=== PATIENT | male | born 1990 | race African-American/Black ===

== ENCOUNTER 2017-02-23 08:00 | Outpatient (CLI) | payer MEDICAID | END 2017-02-23 08:01 | disposition home or self-care (01) | LOC: LAB.R 08:00 | PROVIDERS: ATTEND Physician Assistant | DX: L92.3 Foreign body granuloma of the skin and subcutaneous tissue (principal) | CPT/HCPCS: 87070; 87205 ==

== ENCOUNTER 2017-02-23 10:48 | Outpatient (CLI) | payer MEDICAID ==
--- NOTE | 2017-02-23 13:57 | XRAY Report ---
THREE-VIEW RIGHT FOOT: 02/23/2017 CLINICAL INDICATION: Right foot pain. FINDINGS: AP, lateral, oblique views of the right foot demonstrate no evidence of fracture or disloc ation. The joint spaces are unremarkable. No radiopaque foreign body is seen in the soft tissues. IMPRESSION: NORMAL RIGHT FOOT. JOB #: [id number] EXT JOB #:[id number]
== END 2017-02-23 10:49 | disposition home or self-care (01) ==
LOC: DI.N 10:48
PROVIDERS: ATTEND Physician Assistant
DX: L92.3 Foreign body granuloma of the skin and subcutaneous tissue (principal)
CPT/HCPCS: 87070; 87205

== ENCOUNTER 2017-03-13 03:09 | Emergency (ER) | payer MEDICAID ==
[2017-03-13 03:19] VITALS: BP 149/86
[2017-03-13] MEDS ORDERED: HYDROcod/ACET 5/325 Prepack 6 PO STA (03:40)
--- NOTE | 2017-03-13 03:43 | ED Physician Documentation ---
PD HPI HEENT - Stated complaint Stated Complaint: TOOTHACHE - Chief complaint Chief Complaint: Heent - History obtained from History obtained from: Patient - History of Present Illness Timing - onset: How many days ago (3) Timing - details: Still present Location: Tooth Associated symptoms: Headache (mild). No: Fever, Facial swelling Recently seen: Clinic (yesterday) - Treatment prior to arrival Treatment prior to arrival: Penicillin and ibuprofen. - Additional information Additional information: The patient is a 26-year-old male who presents with toothache in the right upper premolar. His symptoms started 3 days ago, but have become worse since last night. He reports mild associated headache, but denies fever, earache, or sore throat. He was seen in outpatient clinic yesterday and was prescribed penicillin and ibuprofen. His last dose of ibuprofen was about 7 hours ago. He reports history of similar symptoms in the past, and admits to past history of methamphetamine use. He denies recent use of amphetamines. Review of Systems Constitutional: denies: Fever Eyes: denies: Irritation Ears: denies: Ear pain Nose: denies: Congestion Throat: reports: Dental pain / toothache. denies: Sore throat Cardiac: denies: Chest pain / pressure Respiratory: denies: Dyspnea, Cough GI: denies: Nausea, Vomiting Skin: denies: Rash Musculoskeletal: denies: Neck pain Neurologic: reports: Headache (mild) PD PAST MEDICAL HISTORY - Past Medical History Past Medical History: No Cardiovascular: None Respiratory: None Endocrine/Autoimmune: None - Past Surgical History Past Surgical History: No - Present Medications Home Medications: Ambulatory Orders Medication Instructions Recorded Confirmed HYDROcod/ACETAM 5/325 [Vicodin 1 - 2 ea PO Q6H PRN #20 tablet 03/13/17 5/325] Ibuprofen [Motrin] 800 mg PO Q8H PRN 03/13/17 03/13/17 Penicillin Vk 250 mg PO BID 03/13/17 03/13/17 - Allergies Allergies/Adverse Reactions: Allergies Allergy/AdvReac Type Severity Reaction Status Date / Time No Known Drug Allergies Allergy Verified 03/13/17 03:24 - Social History Does the pt smoke?: Yes Smoking Status: Current every day smoker Does the pt drink ETOH?: No Does the pt have substance abuse?: No - Immunizations Immunizations are current?: Yes - POLST Patient has POLST: No PD ED PE NORMAL - Vitals Vital signs reviewed: Yes (Borderline hypertension initially.) - General General: Alert and oriented X 3, Well developed/nourished - HEENT HEENT: Atraumatic, EOMI, Ears normal, Pharynx benign, Other (Widespread dental caries, with many teeth rotted to the gumline. There is swelling of the alveolar gum over the right premolars, with a draining abscess noted. There is no significant facial swelling or peritonsillar abscess detected.) - Neck Neck: Supple, no meningeal sign, No adenopathy, No JVD - Cardiac Cardiac: RRR, No murmur - Respiratory Respiratory: No respiratory distress, Clear bilaterally - Derm Derm: No rash - Neuro Neuro: Alert and oriented X 3, Normal speech Results - Vitals Vitals: Oxygen O2 Source Room air PD MEDICAL DECISION MAKING - ED course Complexity details: considered differential, d/w patient ED course: The patient's presentation is significant for dental abscess. There is no clinical evidence to suggest peritonsillar abscess. He is already on penicillin which was started yesterday. A prepack of Vicodin was dispensed, and he is discharged with a prescription for a few more Vicodin. I discussed with him the importance of continuing the antibiotic therapy, following up with a dentist, as well as potentially worrisome signs or symptoms that should prompt reevaluation in the emergency department. Departure - Departure Disposition: 01 Home, Self Care Clinical Impression: Dental abscess Condition: Stable Instructions: ED Abscess Dental Follow-Up: Norm Levy PA-C [Primary Care Provider] - Prescriptions: HYDROcod/ACETAM 5/325 [Vicodin 5/325] 1 - 2 ea PO Q6H PRN #20 tablet PRN Reason: Pain Comments: Continue Augmentin as previously prescribed. You can use Vicodin as prescribed if needed for pain. Follow-up with a dentist as soon as possible. Call for earliest available appointment. Return to the emergency department if you develop increasing pain, increasing facial swelling, or otherwise worsening symptoms. Discharge Date/Time: 03/13/17 03:47
[2017-03-13] MEDS ORDERED: HYDROcod/ACET 5/325 Prepack 6 PO ONE (03:46)
== END 2017-03-13 03:47 | disposition home or self-care (01) ==
LOC: ED 03:09
DX: K04.7 Periapical abscess without sinus (principal); F17.200 Nicotine dependence, unspecified, uncomplicated
CPT/HCPCS: 99283

== ENCOUNTER 2017-09-10 08:00 | Outpatient (CLI) | payer MEDICAID | END 2017-09-10 08:01 | disposition home or self-care (01) | LOC: LAB.N 08:00 | PROVIDERS: ATTEND Nurse Practitioner Gerontology | DX: Z11.3 Encounter for screening for infections with a predominantly sexual mode of transmission (principal) | CPT/HCPCS: 36415; 80050; 80061; 81599; 83721; 86803; 87389; 87491; 87591 ==

== ENCOUNTER 2017-09-11 13:11 | Outpatient (CLI) | payer MEDICAID ==
[2017-09-11 19:29] LABS: BASOPHILS % (AUTO) 0.7 %; EOSINOPHILS # (AUTO) 0.1 10^3/uL (0.0-0.7); HGB - HEMOGLOBIN 14.9 g/dL (14.0-18.0); LYMPHOCYTES # (AUTO) 2.6 10^3/uL (1.5-3.5); LYMPHOCYTES % (AUTO) 59.5 %; MEAN CORPUSCULAR HEMOGLOBIN 31.5 pg (27.0-31.0); MEAN CORPUSCULAR HGB CONC 33.4 g/dL (32.0-36.0); MEAN CORPUSCULAR VOLUME 94.5 fL (80.0-94.0); MEAN PLATELET VOLUME 8.4 fL (7.4-11.4); MONOCYTES # (AUTO) 0.2 10^3/uL (0.0-1.0); MONOCYTES % (AUTO) 5.1 %; NEUTROPHILS # (AUTO) 1.4 10^3/uL (1.5-6.6); NEUTROPHILS % (AUTO) 31.7 %; PLT - PLATELET COUNT 144 10^3/uL (130-450); RED BLOOD COUNT 4.74 10^6/uL (4.70-6.10); RED CELL DISTRIBUTION WIDTH 13.4 % (12.0-15.0); WHITE BLOOD COUNT 4.3 x10^3/uL (4.8-10.8)
[2017-09-11 19:51] LABS: ALBUMIN 4.5 g/dL (3.2-5.5); ALBUMIN/GLOBULIN RATIO 1.6 (1.0-2.2); ALKALINE PHOSPHATASE 75 IU/L (42-121); ALT ALANINE AMINOTRANSFERASE 10 IU/L (10-60); AST ASPARTATE AMINOTRANSFERASE 20 IU/L (10-42); BILIRUBIN,TOTAL 0.9 mg/dL (0.2-1.0); BUN - BLOOD UREA NITROGEN 7 mg/dL (6-20); CALCIUM 9.2 mg/dL (8.5-10.3); CARBON DIOXIDE - CO2 26 mmol/L (21-32); CHLORIDE 109 mmol/L (101-111); CHOL/HDL RATIO 4.1 (<5.0); CHOLESTEROL 142 mg/dL; CREATININE 0.9 mg/dL (0.6-1.2); GFR - MDRD 123 (>89); GLUCOSE 78 mg/dL (70-100); HDL CHOLESTEROL 35 mg/dL; LDL CHOLESTEROL,CALCULATED 97 mg/dL; LDL/HDL RATIO 2.8 (<3.6); SODIUM 138 mmol/L (135-145); TOTAL PROTEIN 7.4 g/dL (6.7-8.2); VLDL CHOLESTEROL 10 mg/dL
[2017-09-12 12:52] LABS: HIV AG/AB 4TH GEN NON-REACTIVE (NON-REACTIVE)
[2017-09-12 14:09] LABS: HEPATITIS C ANTIBODY NON-REACTIVE (NON-REACTIVE)
== END 2017-09-11 13:12 | disposition home or self-care (01) ==
LOC: LAB.N 13:11
PROVIDERS: ATTEND Nurse Practitioner Gerontology
DX: Z13.9 Encounter for screening, unspecified (principal); Z11.3 Encounter for screening for infections with a predominantly sexual mode of transmission
CPT/HCPCS: 36415; 80050; 80061; 81599; 83721; 86592; 86803; 87389

== ENCOUNTER 2019-12-09 21:22 | Emergency (ER) | payer MEDICAID ==
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
[2019-12-09 22:55] VITALS: BP 116/68
== END 2019-12-09 23:04 | disposition home or self-care (01) ==
LOC: ED 21:22
DX: S20.219A Contusion of unspecified front wall of thorax, initial encounter (principal); W22.09XA Striking against other stationary object, initial encounter; Y93.16 Activity, rowing, canoeing, kayaking, rafting and tubing; Y92.828 Other wilderness area as the place of occurrence of the external cause; F17.200 Nicotine dependence, unspecified, uncomplicated
CPT/HCPCS: 71250; 99284

== ENCOUNTER 2020-03-10 09:14 | Emergency (ER) | payer MEDICAID ==
[2020-03-10 09:21] VITALS: BP 145/80
[2020-03-10] MEDS ORDERED: CYCLOBENZAPRINE 10 MG TABLET PO STA (09:26)
[2020-03-10] MEDS ORDERED: HYDROcod/ACETAM 5/325 MG TABLET PO STA (09:26)
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
== END 2020-03-10 09:37 | disposition home or self-care (01) ==
LOC: ED 09:14
DX: M54.6 Pain in thoracic spine (principal); F17.200 Nicotine dependence, unspecified, uncomplicated
CPT/HCPCS: 99282; 99284; A9270

== ENCOUNTER 2020-08-01 08:23 | Outpatient (CLI) | payer MEDICAID ==
--- NOTE | 2020-08-01 17:12 | XRAY Report ---
PROCEDURE: Lumbar Spine Complete INDICATIONS: STRAIN OF MUSCLE, FASCIA, AND TENDON OF LOWER BACK TECHNIQUE: 4 views of the lumbar spine were acquired. COMPARISON: None. FINDINGS: Bones: 5 [id number] vertebrae are present. There is normal bony alignment. No vertebral body compression fractures. No suspicious bony lesions. No pars and articularis defects. Soft tissues: Overlying bowel gas pattern is normal. No suspicious soft tissue calcifications. IMPRESSION: No fracture. No osseous lesion. If there is continued clinical concern for pathology, then MRI should be considered for further evaluation. Reviewed by: Billie Woods MD, PhD on 08/01/2020 4:11 PM [facility] Approved by: Billie Woods MD, PhD on 08/01/2020 4:11 PM [facility] Station ID: [id number]
== END 2020-08-01 23:59 | disposition home or self-care (01) ==
LOC: DI.N 08:23
PROVIDERS: ATTEND Nurse Practitioner
DX: S39.012A Strain of muscle, fascia and tendon of lower back, initial encounter (principal)

== ENCOUNTER 2021-01-27 07:18 | Emergency (ER) | payer MEDICAID ==
[2021-01-27 07:34] VITALS: BP 150/93
--- NOTE | 2021-01-27 07:41 | ED Physician Documentation ---
PD HPI MALE - Stated complaint Stated Complaint: MALE - Chief complaint Chief Complaint: General - History obtained from History obtained from: Patient - History of Present Illness Timing - onset: How many days ago (2-3) Timing - duration: Days (2-3) Timing - details: Gradual onset, Still present Associated symptoms: Other (pubic itching and noted small white thing crawling.) Similar symptoms before: Has not had sx before Recently seen: Not recently seen Review of Systems Constitutional: denies: Fever, Chills Nose: denies: Rhinorrhea / runny nose, Congestion Throat: denies: Sore throat Respiratory: denies: Cough : denies: Dysuria, Frequency, Discharge Skin: reports: Other (itching without rash noted in pubic area. He states feeling slight scalp itching the past day as well. No bodywide rash nor sores.) Musculoskeletal: denies: Joint pain, Extremity swelling PD PAST MEDICAL HISTORY - Past Medical History Cardiovascular: None Respiratory: None Neuro: None Endocrine/Autoimmune: None GI: None : None HEENT: None Psych: None Musculoskeletal: None Derm: None - Past Surgical History Past Surgical History: No - Present Medications Home Medications: Ambulatory Orders Medication Instructions Recorded Confirmed Permethrin 60 gm TP ONCE #1 tu 01/27/21 - Allergies Allergies/Adverse Reactions: Allergies Allergy/AdvReac Type Severity Reaction Status Date / Time No Known Drug Allergies Allergy Verified 01/27/21 07:34 - Social History Does the pt smoke?: Yes Smoking Status: Current every day smoker Does the pt drink ETOH?: No Does the pt have substance abuse?: No - Immunizations Immunizations are current?: Yes - POLST Patient has POLST: No PD ED PE NORMAL - Vitals Vital signs reviewed: Yes - General General: Alert and oriented X 3, No acute distress, Well developed/nourished - HEENT HEENT: Other (scalp hair is short so easy to examine. No noted skin redness, nits nor lice. ) - Male Male : Other (No discharge. No noted skin sores. Mild redness just near base of penis shaft dorsally. No nits nor lice seen. Can treat empirically. ) - Derm Derm: Normal color, Warm and dry Results - Vitals Vitals: Vital Signs - 24 hr 01/27/21 07:33 Temperature 36.1 C L Heart Rate 89 Respiratory 16 Rate Blood Pressure 150/93 H O2 Saturation 100 Oxygen O2 Source Room air PD MEDICAL DECISION MAKING - ED course Complexity details: considered differential (no nits seen. So if has lice, then mild infestation. Can treat empirically with permithrin. ), d/w patient Departure - Departure Disposition: 01 Home, Self Care Clinical Impression: Pubic lice Condition: Stable Record reviewed to determine appropriate education?: Yes Instructions: ED Lice Pubic Prescriptions: Permethrin 60 gm TP ONCE #1 tu Comments: Use the permethrin as directed by the package instructions. Trade names for this are RID, Nix, Elimite. Typically this can be treated with a single application. The itchiness may persist for a few days after and taper down. Recheck or re-apply the Permithrin if persistent symptoms after a week or so.
== END 2021-01-27 08:29 | disposition home or self-care (01) ==
LOC: ED 07:18
DX: B85.3 Phthiriasis (principal); F17.200 Nicotine dependence, unspecified, uncomplicated
CPT/HCPCS: 99282; 99283

== ENCOUNTER 2021-02-01 07:13 | Emergency (ER) | payer MEDICAID ==
--- NOTE | 2021-02-01 08:01 | ED Physician Documentation ---
History of Present Illness - Stated complaint Stated Complaint: RASH - Chief complaint Chief Complaint: Wound - History obtained from History obtained from: Patient - History of Present Illness Timing: Today Pain level max: 5 Pain level now: 3 - Additonal information Additional information: Patient is a 30-year-old male who states that he was shaving last night and has noticed irritation to the underside of his skin. He states that this is itchy and painful. Nothing makes it better or worse. He states he was recently treated for potential scabies versus lice. He states he took red but this did not help. He states that there are worms coming out of his skin and on his eyelashes. He complains that the rash is itchy Review of Systems Constitutional: denies: Fever, Chills GI: denies: Vomiting, Diarrhea Musculoskeletal: denies: Neck pain, Back pain Neurologic: denies: Headache PD PAST MEDICAL HISTORY - Past Medical History Past Medical History: No Cardiovascular: None Respiratory: None Neuro: None Endocrine/Autoimmune: None GI: None : None HEENT: None Psych: None Musculoskeletal: None Derm: None - Past Surgical History Past Surgical History: No - Present Medications Home Medications: Ambulatory Orders Medication Instructions Recorded Confirmed Ivermectin [Stromectol] 12 mg PO ONCE #8 tablet 02/01/21 predniSONE [Deltasone] 40 mg PO DAILY #10 tablet 02/01/21 - Allergies Allergies/Adverse Reactions: Allergies Allergy/AdvReac Type Severity Reaction Status Date / Time No Known Drug Allergies Allergy Verified 02/01/21 07:49 - Social History Does the pt smoke?: Yes Smoking Status: Current every day smoker Does the pt drink ETOH?: No Does the pt have substance abuse?: Yes Substance Use and Type: Cocaine/Crack - Immunizations Immunizations are current?: Yes - POLST Patient has POLST: No PD ED PE NORMAL - Vitals Vital signs reviewed: Yes - General General: Alert and oriented X 3, No acute distress - HEENT HEENT: Moist mucous membranes - Neck Neck: Supple, no meningeal sign - Cardiac Cardiac: RRR - Respiratory Respiratory: No respiratory distress, Clear bilaterally - Derm Derm: Warm and dry, Other (I do not visualize any parasites on the patient. He does have skin irritation to the face. Mostly underneath the chin. No drainage. No evidence of infection.) - Neuro Neuro: Alert and oriented X 3 - Psych Psych: Normal mood, Normal affect Results - Vitals Vitals: Vital Signs - 24 hr 02/01/21 02/01/21 07:35 08:36 Temperature 37.2 C Heart Rate 117 H 87 Respiratory 16 16 Rate Blood Pressure 149/106 H 130/79 O2 Saturation 98 100 Oxygen O2 Source Room air PD MEDICAL DECISION MAKING - ED course Complexity details: reviewed results, re-evaluated patient, considered differential, d/w patient ED course: Patient is a 30-year-old male who presents to the emergency department with what appears to be a rash to the underside of the chin. He is also concerned about parasites. He states that there are worms underneath his fingernails, on his eyelashes and in his skin. He states the permethrin did not help. We will trial him on ivermectin to see if this helps his symptoms. Patient is well- appearing, nontoxic. Afebrile. We will have him follow-up with dermatology for further care. Patient counseled regarding signs and symptoms for which I believe and urgent re-evaluation would be necessary. Patient with good understanding of and agreement to plan and is comfortable going home at this time This document was made in part using voice recognition software. While efforts are made to proofread this document, sound alike and grammatical errors may occur. Departure - Departure Disposition: 01 Home, Self Care Clinical Impression: Dermatitis, Dermatosis due to mites Condition: Good Instructions: ED Dermatitis Non Specific Rash Follow-Up: [facility] [Provider Group] - Within 3 Days ([address], [place] [address]) Prescriptions: predniSONE [Deltasone] 40 mg PO DAILY #10 tablet Ivermectin [Stromectol] 12 mg PO ONCE #8 tablet Comments: [address], [place] [address] Please follow-up with dermatology for further care. We can trial you on steroids and a different night cream. Unclear etiology of your symptoms. They may need to perform biopsies to determine the cause. We will trial you on ivermectin to see if this resolves your symptoms. This is an antiparasitic drug. Discharge Date/Time: 02/01/21 08:37
[2021-02-01 08:37] VITALS: BP 130/79
== END 2021-02-01 08:37 | disposition home or self-care (01) ==
LOC: ED 07:13
DX: L30.9 Dermatitis, unspecified (principal); B88.9 Infestation, unspecified; L98.8 Other specified disorders of the skin and subcutaneous tissue; F17.200 Nicotine dependence, unspecified, uncomplicated
CPT/HCPCS: 99282; 99284

== ENCOUNTER 2021-02-23 12:02 | Emergency (ER) | payer MEDICAID ==
[2021-02-23 12:09] VITALS: BP 135/78
[2021-02-23] MEDS ORDERED: IBUPROFEN 600 MG TABLET PO STA (12:42)
[2021-02-23] MEDS ORDERED: PSEUDOEPHEDRINE 30 MG TABLET PO STA (12:42)
[2021-02-23] MEDS ORDERED: ONDANSETRON ODT 4 MG TABLET TL STA (12:43)
--- NOTE | 2021-02-23 12:45 | ED Physician Documentation ---
PD HPI DYSPNEA - Stated complaint Stated Complaint: SOA/TROUBLE SWALLOWING - Chief complaint Chief Complaint: Resp - History obtained from History obtained from: Patient - Additional information Additional information: 30-year-old gentleman who is generally healthy but does use tobacco has been sick since yesterday. Started with dry cough now minimally productive with sore throat that is better today. Main thing is that the coughing is causing nausea. No fevers. He has been immunized against Covid and declines a Covid test today. Review of Systems Constitutional: reports: Fatigue. denies: Myalgias Nose: reports: Rhinorrhea / runny nose, Congestion Throat: reports: Sore throat (gone) Respiratory: reports: Cough. denies: Dyspnea PD PAST MEDICAL HISTORY - Past Medical History Cardiovascular: None Respiratory: None Neuro: None Endocrine/Autoimmune: None GI: None : None HEENT: None Psych: None Musculoskeletal: None Derm: None - Past Surgical History Past Surgical History: No - Present Medications Home Medications: Ambulatory Orders Medication Instructions Recorded Confirmed Ivermectin [Stromectol] 12 mg PO ONCE #8 tablet 02/01/21 predniSONE [Deltasone] 40 mg PO DAILY #10 tablet 02/01/21 Guaifenesin/Pseudoephedrne HCl 1 each PO BID PRN #20 ea 02/23/21 [Mucinex D ER 600-60 mg Tablet] Ibuprofen [Motrin] 800 mg PO Q8H PRN #30 tablet 02/23/21 Ondansetron Odt [Zofran] 4 mg TL Q6H PRN #10 tablet 02/23/21 guaiFENesin/CODEINE [Robitussin AC] 5 - 10 ml PO Q6H PRN #120 ml 02/23/21 - Allergies Allergies/Adverse Reactions: Allergies Allergy/AdvReac Type Severity Reaction Status Date / Time No Known Drug Allergies Allergy Verified 02/23/21 12:05 - Social History Does the pt smoke?: Yes Smoking Status: Current every day smoker Does the pt drink ETOH?: No Does the pt have substance abuse?: Yes - Immunizations Immunizations are current?: Yes - POLST Patient has POLST: No PD ED PE NORMAL - Vitals Vital signs reviewed: Yes - General General: Alert and oriented X 3, No acute distress - HEENT HEENT: Ears normal, Pharynx benign - Neck Neck: Supple, no meningeal sign, No bony TTP - Cardiac Cardiac: RRR, No murmur - Respiratory Respiratory: No respiratory distress, Clear bilaterally - Abdomen Abdomen: Non tender - Neuro Neuro: Alert and oriented X 3, Normal speech Results - Vitals Vitals: Vital Signs - 24 hr 02/23/21 12:05 Temperature 36.6 C Heart Rate 77 Respiratory 16 Rate Blood Pressure 135/78 H O2 Saturation 98 Oxygen O2 Source Room air Departure - Departure Disposition: Home, Self Care Clinical Impression: Upper respiratory tract infection Qualifiers: URI type: unspecified viral URI Qualified Code(s): J06.9 - Acute upper respiratory infection, unspecified Condition: Good Record reviewed to determine appropriate education?: Yes Instructions: ED Viral Syndrome Prescriptions: Ibuprofen [Motrin] 800 mg PO Q8H PRN #30 tablet PRN Reason: PAIN &/OR FEVER Guaifenesin/Pseudoephedrne HCl [Mucinex D ER 600-60 mg Tablet] 1 each PO BID PRN #20 ea PRN Reason: congestion guaiFENesin/CODEINE [Robitussin AC] 5 - 10 ml PO Q6H PRN #120 ml PRN Reason: Cough Ondansetron Odt [Zofran] 4 mg TL Q6H PRN #10 tablet PRN Reason: Nausea / Vomiting Comments: Return if worsening or if not better over the next few days. Follow-up with your doctor next week for recheck. Do not drink or drive while taking prescription cough syrup I am prescribing a short course of narcotic cough medication for you. These are potentially dangerous and addictive medications that should be used carefully. These medications may constipate you. Take an mypc-naa-novvrtw stool softener (docusate) twice daily with plenty of water while taking these medications. If you go 24 hours without a bowel movement, take osoi-wqk-letazpw miralax, per package instructions. Do not drink or drive while taking these medications. If you received narcotic or sedating medications while in the emergency department, do not drive for 24 hours. Store this medication in a safe, secure place and out of reach of children. It is a violation of federal law to give or sell this medication to another person or to use in a manner other than prescribed. The ED will not refill narcotic prescriptions, including prescriptions lost or stolen. To dispose of unwanted medications: 1. [facility] at [address] in [place] has a medication drop box. They accept prescription medications (in pill form) Thursday through Thursday 9:00 a.m. to 5:00 p.m. 2. The [facility] accepts prescription medications (in pill form only) for disposal year round. Call for more information. 3. Contact the [facility] for the next [facility] sponsored prescription drug collection event. , [id number], or [id number]; Note that many narcotic pain relievers also contain Tylenol/acetaminophen. Please ensure that your total dose of acetaminophen from all sources does not exceed 3 g (3000 mg) per day. Discharge Date/Time: 02/23/21 12:53
== END 2021-02-23 12:53 | disposition home or self-care (01) ==
LOC: ED 12:02
DX: J06.9 Acute upper respiratory infection, unspecified (principal); Z72.0 Tobacco use
CPT/HCPCS: 99284; A9270; Q0162

== ENCOUNTER 2021-08-10 12:54 | Emergency (ER) | payer MEDICAID ==
[2021-08-10] MEDS ORDERED: HYDROcod/ACETAM 5/325 MG TABLET PO STA (13:15)
[2021-08-10] MEDS ORDERED: KETOROLAC 60 MG/2 ML VIAL IM STA (13:15)
--- NOTE | 2021-08-10 13:17 | ED Physician Documentation ---
PD HPI UPPER EXT INJURY - Stated complaint Stated Complaint: R SHOULDER/ARM PX - Chief complaint Chief Complaint: Trauma Ext - History obtained from History obtained from: Patient - Additonal information Additional information: He was changing a tire about 10 days ago and the wrench broke and forcefully turned his right shoulder and he has severe persistent right shoulder pain. He has been seen in the walk-in clinic and had an ultrasound done which was reportedly negative. He has been trying NSAIDs and was prescribed muscle relaxers which have not been very helpful. No other injuries. He has a history of drug abuse but remote and in remission. Review of Systems Constitutional: reports: Reviewed and negative Cardiac: reports: Reviewed and negative Respiratory: reports: Reviewed and negative PD PAST MEDICAL HISTORY - Past Medical History Cardiovascular: None Respiratory: None Neuro: None Endocrine/Autoimmune: None GI: None : None HEENT: None Psych: None Musculoskeletal: None Derm: None - Past Surgical History Past Surgical History: No - Present Medications Home Medications: Ambulatory Orders Medication Instructions Recorded Confirmed Ivermectin [Stromectol] 12 mg PO ONCE #8 tablet 02/01/21 predniSONE [Deltasone] 40 mg PO DAILY #10 tablet 02/01/21 Guaifenesin/Pseudoephedrne HCl 1 each PO BID PRN #20 ea 02/23/21 [Mucinex D ER 600-60 mg Tablet] Ibuprofen [Motrin] 800 mg PO Q8H PRN #30 tablet 02/23/21 Ondansetron Odt [Zofran] 4 mg TL Q6H PRN #10 tablet 02/23/21 guaiFENesin/CODEINE [Robitussin AC] 5 - 10 ml PO Q6H PRN #120 ml 02/23/21 HYDROcod/ACETAM 5/325 [Gate 5/325] 1 - 2 tab PO Q6H PRN #15 tablet 08/10/21 Lidocaine Patch 5% [Lidoderm Patch] 1 patch TOP DAILY PRN #10 patch 08/10/21 - Allergies Allergies/Adverse Reactions: Allergies Allergy/AdvReac Type Severity Reaction Status Date / Time No Known Drug Allergies Allergy Verified 08/10/21 13:04 - Social History Does the pt smoke?: Yes Smoking Status: Current every day smoker Does the pt drink ETOH?: No Does the pt have substance abuse?: Yes - Immunizations Immunizations are current?: Yes - POLST Patient has POLST: No PD ED PE NORMAL - Vitals Vital signs reviewed: Yes - General General: Alert and oriented X 3, No acute distress - Neck Neck: Supple, no meningeal sign, No bony TTP - Extremities Extremities: Other (Tender over the upper latissimus dorsi posteriorly. Internal and external rotation of the right shoulder is painless but abduction is quite painful.) - Neuro Neuro: Alert and oriented X 3, Normal speech Results - Vitals Vitals: Vital Signs - 24 hr 08/10/21 12:58 Temperature 36.6 C Heart Rate 91 Respiratory 16 Rate Blood Pressure 133/91 H O2 Saturation 100 Oxygen O2 Source Room air Departure - Departure Disposition: Home, Self Care Clinical Impression: Strain of latissimus dorsi muscle Qualifiers: Encounter type: initial encounter Qualified Code(s): S29.012A - Strain of muscle and tendon of back wall of thorax, initial encounter Condition: Good Record reviewed to determine appropriate education?: Yes Instructions: ED Shoulder Pain [facility] Prescriptions: Lidocaine Patch 5% [Lidoderm Patch] 1 patch TOP DAILY PRN #10 patch PRN Reason: pain HYDROcod/ACETAM 5/325 [Gate 5/325] 1 - 2 tab PO Q6H PRN #15 tablet PRN Reason: Pain Comments: I sent prescription electronically to [facility] in [place]. Follow-up with your family doctor, as discussed I think having them refer you for physical therapy would be very helpful for you. I am prescribing a short course of narcotic pain medication for you. These are potentially dangerous and addictive medications that should be used carefully. These medications may constipate you. Take an ttdd-mtg-hgonjad stool softener (docusate) twice daily with plenty of water while taking these medications. If you go 24 hours without a bowel movement, take bouf-zad-iuckzpg miralax, per package instructions. Do not drink or drive while taking these medications. If you received narcotic or sedating medications while in the emergency department, do not drive for 24 hours. Store this medication in a safe, secure place and out of reach of children. It is a violation of federal law to give or sell this medication to another pers on or to use in a manner other than prescribed. The ED will not refill narcotic prescriptions, including prescriptions lost or stolen. To dispose of unwanted medications: 1. [facility] at [address] in [place] has a medication drop box. They accept prescription medications (in pill form) Thursday through Thursday 9:00 a.m. to 5:00 p.m. 2. The [facility] accepts prescription medications (in pill form only) for disposal year round. Call for more information. 3. Contact the [facility] for the next [facility] sponsored prescription drug collection event. , [id number], or [phone]; Note that many narcotic pain relievers also contain Tylenol/acetaminophen. Please ensure that your total dose of acetaminophen from all sources does not exceed 3 g (3000 mg) per day.
[2021-08-10 13:37] VITALS: BP 114/74
== END 2021-08-10 13:37 | disposition home or self-care (01) ==
LOC: ED 12:54
DX: S29.012A Strain of muscle and tendon of back wall of thorax, initial encounter (principal); X50.1XXA Overexertion from prolonged static or awkward postures, initial encounter; Y93.89 Activity, other specified; F17.200 Nicotine dependence, unspecified, uncomplicated
CPT/HCPCS: 96372; 99283; A9270

== ENCOUNTER 2023-04-19 09:17 | Emergency (ER) | payer MEDICAID ==
[2023-04-19 09:37] VITALS: BP 144/102; O2SAT 99
[2023-04-19] MEDS ORDERED: ONDANSETRON 4 MG/2 ML VIAL IVP STA (11:42)
[2023-04-19] MEDS ORDERED: IBUPROFEN 600 MG TABLET PO STA (11:42)
--- NOTE | 2023-04-19 11:47 | ED Physician Documentation ---
History of Present Illness - Stated complaint Stated Complaint: VOMITING/THROAT PX - Chief complaint Chief Complaint: Heent - Additonal information Additional information: 32-year-old male who denies any pertinent past medical history presents emergency department for evaluation of nausea vomiting and diarrhea. He is also having a sore throat. He had began having cough cold and congestion 2 days ago. This morning when he was at work he began vomiting and was excused home. He denies similar illness and others at home though he does work at [employer]. Reports he is tested negative for COVID. He is vaccinated. His biggest concern is the vomiting and the sore throat. Review of Systems Constitutional: reports: Myalgias, Fatigue. denies: Fever Nose: denies: Rhinorrhea / runny nose, Congestion Throat: reports: Sore throat Cardiac: denies: Chest pain / pressure, Palpitations Respiratory: reports: Cough. denies: Dyspnea GI: reports: Nausea, Vomiting. denies: Abdominal Pain : reports: Reviewed and negative Skin: reports: Reviewed and negative Musculoskeletal: reports: Reviewed and negative PD PAST MEDICAL HISTORY - Past Medical History Cardiovascular: None Respiratory: None Neuro: None Endocrine/Autoimmune: None GI: None : None HEENT: None Psych: None Musculoskeletal: None Derm: None - Past Surgical History Past Surgical History: No - Present Medications Home Medications: Ambulatory Orders Medication Instructions Recorded Confirmed Gabapentin 300 04/19/23 Ondansetron Odt [Zofran] 4 mg TL Q6H PRN #10 tablet 04/19/23 methocarbamoL [Methocarbamol] 04/19/23 - Allergies Allergies/Adverse Reactions: Allergies Allergy/AdvReac Type Severity Reaction Status Date / Time No Known Drug Allergies Allergy Verified 04/19/23 09:30 - Social History Does the pt smoke?: Yes Smoking Status: Current every day smoker Does the pt drink ETOH?: No Does the pt have substance abuse?: Yes - Immunizations Immunizations are current?: Yes - POLST Patient has POLST: No PD ED PE NORMAL - General General: Alert and oriented X 3, No acute distress, Well developed/nourished - HEENT HEENT: Atraumatic, Moist mucous membranes. No: Pharynx benign (Erythematous posterior oropharynx without tonsillar exudate. Uvula is midline. No soft palate asymmetry or swelling. Normal phonation, painful swallow. 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 He is having body aches and fatigue. This morning began having vomiting and diarrhea while at work. He is also been having a sore throat that is worse after coughing and clearing his nose. On exam cardiopulmonary auscultation was unremarkable. No hypoxia. Vital signs here without fever or hypotension. I do note mild tachycardia with a resting heart rate of 103. Low suspicion for pneumonia. No hematic emesis. Low suspicion for esophageal rupture. His ENT exam reveals an erythematous posterior oropharynx without exudate. Given the associated vomiting and diarrhea I suspected that he has a viral illness. No abdominal tenderness was elicited and thus will defer lab work or advanced imaging. We are going to send a respiratory PCR which patient will follow up online. I did give him a single dose of Zofran as well as ibuprofen for body aches and fatigue and lidocaine for the sore throat. We discussed routine conservative care measures for the treatment of viral URI symptoms. The usual emergent return precautions for worsening symptoms was discussed. Departure - Departure Disposition: 01 Home, Self Care Clinical Impression: Vomiting and diarrhea, Sore throat URI (upper respiratory infection) Qualifiers: URI type: unspecified viral URI Qualified Code(s): J06.9 - Acute upper respiratory infection, unspecified Condition: Stable Record reviewed to determine appropriate education?: Yes Prescriptions: Ondansetron Odt [Zofran] 4 mg TL Q6H PRN #10 tablet PRN Reason: Nausea / Vomiting Comments: Serafin you are seen today in the emergency department because for several days you have had cough congestion and sore throat. You have also began to have vomiting this morning and some diarrhea. All of your symptoms in totality indicate that you most likely have a viral upper respiratory infection. The nasal congestion and postnasal drip can cause the sore throat. In general to treat this I would recommend you gargle with warm salt water 2-3 times a day and take 600 mg of Motrin with food or 500 mg of Tylenol 2-3 times a day. A respiratory viral panel is pending. You can follow these results up online through the [email or web address] portal. We will only notify you if you are COVID-19 positive. In general with viral illnesses I recommend that you get plenty of rest and drink lots of fluids. A medication called Zofran has been sent to the [facility] in [place]. This will help with nausea and vomiting. Return to the emergency department if you find you are not having improving symptoms after several days, have any difficulty breathing or uncontrolled vomiting.
[2023-04-19 13:11] LABS: B. PARAPERTUSSIS- RESP PCR PAN NOT DETECTED; B. PERTUSSIS- RESP PCR PANEL NOT DETECTED; C. PNEUMONIAE- RESP PCR PANEL NOT DETECTED; CORONAVIRUS 229E-RESP PCR NOT DETECTED; CORONAVIRUS HKU1-RESP PCR NOT DETECTED; CORONAVIRUS NL63-RESP PCR NOT DETECTED; CORONAVIRUS OC43-RESP PCR NOT DETECTED; HUMAN METAPNEUMOVIRUS NOT DETECTED; INFLUENZA A- RESP PCR PANEL NOT DETECTED; INFLUENZA B - RESP PCR PANEL NOT DETECTED; M. PNEUMONIAE- RESP PCR PANEL NOT DETECTED; PARAINFLUENZA VIRUS 1 NOT DETECTED; PARAINFLUENZA VIRUS 2 NOT DETECTED; PARAINFLUENZA VIRUS 3 NOT DETECTED; PARAINFLUENZA VIRUS 4 NOT DETECTED; RHINOVIRUS/ENTEROVIRUS NOT DETECTED; RSV- RESP PCR PANEL NOT DETECTED; SARS-CoV-2 -RESP PCR PANEL NOT DETECTED
== END 2023-04-19 12:48 | disposition home or self-care (01) ==
LOC: ED 09:17
DX: J06.9 Acute upper respiratory infection, unspecified (principal); F17.200 Nicotine dependence, unspecified, uncomplicated; Z20.822 Contact with and (suspected) exposure to COVID-19
CPT/HCPCS: 87633; 96374; 99283; A9270

== ENCOUNTER 2023-06-23 11:40 | Emergency (ER) | payer MEDICAID ==
[2023-06-23 12:03] VITALS: O2SAT 100
[2023-06-23] MEDS ORDERED: LIDOCAINE 1% 2 ML VIAL MC ONE (12:20)
[2023-06-23] MEDS ORDERED: cefTRIAXone 1 GM VIAL IM STA (12:20)
--- NOTE | 2023-06-23 12:28 | ED Physician Documentation ---
History of Present Illness - Stated complaint Stated Complaint: - Chief complaint Chief Complaint: General - History obtained from History obtained from: Patient - History of Present Illness Timing: Today Pain level max: 0 Pain level now: 0 - Additonal information Additional information: Patient is a 32-year-old male who presents to the emergency department complaining of possible STI exposure. He states his ex-girlfriend called him today and told him that she had a sexually transmitted infection. She then reportedly hung up the phone. He does not know what STI she has. He has no symptoms. Review of Systems Constitutional: denies: Fever, Chills GI: denies: Vomiting Skin: denies: Rash Musculoskeletal: denies: Neck pain, Back pain Neurologic: denies: Headache PD PAST MEDICAL HISTORY - Past Medical History Past Medical History: Yes Cardiovascular: None Respiratory: None Neuro: None Endocrine/Autoimmune: None GI: Other : Kidney stones HEENT: None Psych: None Musculoskeletal: None Derm: None Other Past Medical History: gallbladder atrophy - Past Surgical History Past Surgical History: No - Present Medications Home Medications: Ambulatory Orders Medication Instructions Recorded Confirmed Gabapentin 300 04/19/23 Ondansetron Odt [Zofran] 4 mg TL Q6H PRN #10 tablet 04/19/23 methocarbamoL [Methocarbamol] 04/19/23 Doxycycline Monohydrate 100 mg PO BID #14 cap 06/23/23 - Allergies Allergies/Adverse Reactions: Allergies Allergy/AdvReac Type Severity Reaction Status Date / Time No Known Drug Allergies Allergy Verified 06/23/23 12:03 - Social History Does the pt smoke?: Yes Smoking Status: Current every day smoker Does the pt drink ETOH?: No Does the pt have substance abuse?: Yes - Immunizations Immunizations are current?: Yes - POLST Patient has POLST: No PD ED PE NORMAL - Vitals Vital signs reviewed: Yes - General General: Alert and oriented X 3, No acute distress - HEENT HEENT: Moist mucous membranes - Derm Derm: Warm and dry - Neuro Neuro: Alert and oriented X 3 - Psych Psych: Normal mood, Normal affect Results - Vitals Vitals: Vital Signs - 24 hr 06/23/23 11:59 Temperature 36.5 C Heart Rate 86 Respiratory 16 Rate Blood Pressure 159/93 H O2 Saturation 100 Oxygen O2 Source Room air PD Medical Decision Making - ED course Complexity details: considered differential, d/w patient ED course: Patient is asymptomatic with reported STI exposure though he does not know to what. Testing was sent for gonorrhea and chlamydia. We will treat for these as well. Patient was counseled to follow-up closely with his PCP for full STI testing including HIV. Patient also counseled to use condoms for any sexual activity. Patient counseled regarding signs and symptoms for which I believe and urgent re-evaluation would be necessary. Patient with good understanding of and agreement to plan and is comfortable going home at this time This document was made in part using voice recognition software. While efforts are made to proofread this document, sound alike and grammatical errors may occur. Departure - Departure Disposition: 01 Home, Self Care Clinical Impression: STI (sexually transmitted infection) Condition: Good Instructions: ED STD Male Treated Follow-Up: your,doctor in 1 week [Other] Prescriptions: Doxycycline Monohydrate 100 mg PO BID #14 cap Comments: You were tested and treated for gonorrhea and chlamydia today. You will need to follow-up with your doctor for full STI testing including HIV testing. Your prescription was sent to [facility] in [place]. Forms: PCP List
[2023-06-23 13:10] VITALS: BP 130/88
[2023-06-23 21:29] LABS: CHLAMYDIA TRACHOMATIS DNA NEGATIVE (NEGATIVE); NEISSERIA GONORRHOEAE DNA NEGATIVE (NEGATIVE); TRICHOMONAS VAGINALIS DNA NEGATIVE (NEGATIVE)
== END 2023-06-23 13:00 | disposition home or self-care (01) ==
LOC: ED 11:40
DX: Z20.2 Contact with and (suspected) exposure to infections with a predominantly sexual mode of transmission (principal); F17.200 Nicotine dependence, unspecified, uncomplicated
CPT/HCPCS: 87491; 87591; 87661; 96372; 99283

== ENCOUNTER 2023-08-18 04:11 | Outpatient (CLI) | payer MEDICAID | END 2023-08-18 04:12 | disposition critical access hospital (66) | LOC: EMS 04:11 | DX: R41.82 Altered mental status, unspecified (principal); R09.89 Other specified symptoms and signs involving the circulatory and respiratory systems; R61 Generalized hyperhidrosis | CPT/HCPCS: A0425; A0427; A0999 ==

== ENCOUNTER 2023-08-18 04:32 | Observation (INO) | payer MEDICAID ==
--- NOTE | 2023-08-18 05:30 | ED Physician Documentation ---
PD HPI ALTERED MENTAL STATUS - Stated complaint Stated Complaint: AMS - Chief complaint Chief Complaint: Neuro - History obtained from History obtained from: Patient, EMS - Additional information Additional information: BIBA. HPI is from EMS, as the patient is significantly altered in his mentation on my HPI/ROS. 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 EMS says that the patient told them that he called 911 after he drank the coffee and began to feel strange. EMS says the patient indicated that he noted some white substance on the coffee lid before drinking the coffee. When EMS first arrived on scene, the patient was hypopneic, pulse ox was in the 50s, and the patient was responding minimally responsive. He was given both intranasal and IV narcan with significant improvement (in mentation , respiratory rate, and pulse ox) after these interventions. While awaiting ED eval, he has gradually, increasing obtunded and hypopneic with pulse ox dropping to mid-80s. Review of Systems Unable to obtain: AMS PD PAST MEDICAL HISTORY - Past Medical History Cardiovascular: None Respiratory: None Neuro: None Endocrine/Autoimmune: None GI: Other : Kidney stones HEENT: None Psych: None Musculoskeletal: None Derm: None - Past Surgical History Past Surgical History: No - Present Medications Home Medications: Ambulatory Orders Medication Instructions Recorded Confirmed Gabapentin 300 04/19/23 Ondansetron Odt [Zofran] 4 mg TL Q6H PRN #10 tablet 04/19/23 methocarbamoL [Methocarbamol] 04/19/23 Doxycycline Monohydrate 100 mg PO BID #14 cap 06/23/23 - Allergies Allergies/Adverse Reactions: Allergies Allergy/AdvReac Type Severity Reaction Status Date / Time No Known Drug Allergies Allergy Verified 06/23/23 12:03 - Social History Does the pt smoke?: Yes Smoking Status: Current every day smoker Does the pt drink ETOH?: No Does the pt have substance abuse?: Yes - Immunizations Immunizations are current?: Yes - POLST Patient has POLST: No PD ED PE NORMAL - Vitals Vital signs reviewed: Yes - General General: No acute distress, Well developed/nourished, Other (obtunded, hypopneic but awakens to tactile stimulus; however, he is very drowsy , falling asleep rapidly and repeatedly. His speech is very slow and he appears confused by basic/simple questions) - HEENT HEENT: Atraumatic, PERRL - Cardiac Cardiac: RRR, No murmur - Respiratory Respiratory: No respiratory distress, Clear bilaterally Results - Vitals Vitals: Vital Signs - 24 hr 08/18/23 08/18/23 08/18/23 04:45 06:49 07:40 Temperature 35.5 C L Heart Rate 72 56 L 60 Respiratory 16 16 16 Rate Blood Pressure 117/71 108/62 119/78 O2 Saturation 96 85 L 99 If not protocol 2 : Oxygen Flow, liters/minute 08/18/23 09:03 Temperature Heart Rate 60 Respiratory 10 L Rate Blood Pressure 122/80 O2 Saturation 97 If not protocol 2 : Oxygen Flow, liters/minute Oxygen O2 Source Nasal cannula Oxygen Flow Rate 2 - Labs Labs: Laboratory Tests 08/18/23 08/18/23 06:26 06:26 WBC 6.8 RBC 4.16 L Hgb 13.1 L Hct 40.7 L MCV 97.8 H MCH 31.5 H MCHC 32.2 RDW 14.3 Plt Count 251 MPV 9.2 Neut # (Auto) 4.6 Lymph # (Auto) 1.8 Riley # (Auto) 0.4 Eos # (Auto) 0.0 Baso # (Auto) 0.0 Absolute Nucleated RBC 0.00 Nucleated RBC % 0.0 Sodium 139 Potassium 3.9 Chloride 106 Carbon Dioxide 28 Anion Gap 5.0 L BUN 7 Creatinine 0.9 Estimated GFR (MDRD) 118 Glucose 106 H Calcium 9.2 Total Bilirubin 0.4 AST 34 ALT 27 Alkaline Phosphatase 78 Total Protein 7.2 Albumin 3.9 Globulin 3.3 Albumin/Globulin Ratio 1.2 Lipase 47 Salicylates < 1.5 Acetaminophen 0.2 Ethyl Alcohol < 10.0 PD Medical Decision Making - ED course Complexity details: reviewed results, re-evaluated patient, considered differential ED course: No concerning nor diagnostic findings on CBC, ER abdominal panel. Undetectable levels of ethanol, salicylates. Acetaminophen level 0.2. As noted above, by the time of my evaluations patient, he has again become leth argic and exhibits periods of hypopnea with hypoxia. He is given 0.4 mg IV Narcan and rapidly becomes a AAOx3. He again states he felt strange after drinking coffee. He denies known/intentional drug use. At the end of my shift, patient is again quite drowsy and thus care of patient is turned over to the oncoming ED physician (Dr. Michelle). Patient would be appropriate for discharge if he maintains adequate respiratory rate and oxygen saturations after sufficient monitoring and elapsed time from dosing of Narcan. Given his brisk and reliable response to Narcan in the field and in the ED, erasto james's signs and symptoms are highly likely to be due to opiate/opioid ingestion, whether intentional or accidental. Departure - Departure Forms: PCP List
[2023-08-18] MEDS ORDERED: NALOXONE 0.4 MG/ML VIAL ONE (05:39)
[2023-08-18] MEDS: NALOXONE 0.4 MG/ML VIAL IVP STA ×2 (05:44→07:26)
[2023-08-18 06:31] LABS: BASOPHILS % (AUTO) 0.3 %; EOSINOPHILS % (AUTO) 0.4 %; HCT - HEMATOCRIT 40.7 % (42.0-52.0); HGB - HEMOGLOBIN 13.1 g/dL (14.0-18.0); LYMPHOCYTES # (AUTO) 1.8 10^3/uL (1.5-3.5); LYMPHOCYTES % (AUTO) 25.9 %; MEAN CORPUSCULAR HEMOGLOBIN 31.5 pg (27.0-31.0); MEAN CORPUSCULAR HGB CONC 32.2 g/dL (32.0-36.0); MEAN CORPUSCULAR VOLUME 97.8 fL (80.0-94.0); MEAN PLATELET VOLUME 9.2 fL (7.4-11.4); MONOCYTES # (AUTO) 0.4 10^3/uL (0.0-1.0); MONOCYTES % (AUTO) 5.7 %; NEUTROPHILS # (AUTO) 4.6 10^3/uL (1.5-6.6); NEUTROPHILS % (AUTO) 67.6 %; PLT - PLATELET COUNT 251 10^3/uL (130-450); RED BLOOD COUNT 4.16 10^6/uL (4.70-6.10); RED CELL DISTRIBUTION WIDTH 14.3 % (12.0-15.0); WHITE BLOOD COUNT 6.8 x10^3/uL (4.8-10.8)
[2023-08-18 07:07] LABS: ACETAMINOPHEN 0.2 ug/mL; ALBUMIN 3.9 g/dL (3.2-5.5); ALBUMIN/GLOBULIN RATIO 1.2 (1.0-2.2); ALKALINE PHOSPHATASE 78 IU/L (42-121); ALT ALANINE AMINOTRANSFERASE 27 IU/L (10-60); AST ASPARTATE AMINOTRANSFERASE 34 IU/L (10-42); BILIRUBIN,TOTAL 0.4 mg/dL (0.2-1.0); BUN - BLOOD UREA NITROGEN 7 mg/dL (6-20); CALCIUM 9.2 mg/dL (8.5-10.3); CARBON DIOXIDE - CO2 28 mmol/L (21-32); CHLORIDE 106 mmol/L (101-111); CREATININE 0.9 mg/dL (0.6-1.3); ETOH - ETHANOL < 10.0 mg/dL; GFR - MDRD 118 (>89); GLUCOSE 106 mg/dL (74-104); LIPASE 47 U/L (11-82); POTASSIUM 3.9 mmol/L (3.5-4.5); SODIUM 139 mmol/L (135-145); TOTAL PROTEIN 7.2 g/dL (6.4-8.9)
[2023-08-18 07:14] LABS: SALICYLATE < 1.5 mg/dL
[2023-08-18] MEDS: SODIUM CHLORIDE 0.9% 1,000 ML IV STA (08:11)
[2023-08-18] MEDS: NALOXONE HCL NASAL SPRAY KIT NAS STA (08:12)
--- NOTE | 2023-08-18 09:43 | ED Physician Documentation ---
ED Addendum - Addendum Addendum: 08/18/23 07:15 Patient signed out to me at shift change pending reevaluation. Patient is being treated for suspected opiate overdose. He was given 2 mg of Narcan in the field with improvement and did require an additional 0.4 mg here. This was around 544 this morning. Upon my reassessment he is drowsy, hypoxic in the high 80s. Additional dose of Narcan ordered along with supplemental oxygen. He does awaken to sternal rub but appears quite groggy. 09:41 Patient still appears drowsy.Does wake up with sternal rub. States that he just feels tired. Has not been able to give a urine specimen. Will take off oxygen and reassess. 08/18/23 10:45 Patient has remained drowsy. Has required oxygen. Has not been apneic to warrant further doses of Narcan or Narcan drip at this time but I did discuss the case with admitting hospitalist Dr. Lebron who agrees to admit for further management.We reviewed the chest x-ray which shows concerns for atypical pneumonia. She will place on Augmentin and request that we hold on any antibiotics here in the ER.UDS is positive for amphetamines, cocaine, marijuana. Departure - Departure Disposition: ED Place in Observation Clinical Impression: Opiate overdose, Hypoxia, Atypical pneumonia, Polysubstance abuse Condition: Good Discharge Date/Time: 08/18/23 12:04
--- NOTE | 2023-08-18 10:13 | XRAY Report ---
PROCEDURE: Chest 1V INDICATIONS: SOA TECHNIQUE: One view of the chest was acquired. COMPARISON: None. FINDINGS: Surgical changes and devices: None. Lungs and pleura: No pleural effusions or pneumothorax. Mild patchy bilateral perihilar and basilar opacity. Mediastinum: Mediastinal contours appear normal. Heart size is normal. Bones and chest wall: No suspicious bony lesions. Overlying soft tissues appear unremarkable. IMPRESSION: Mild atypical pneumonia. Reviewed by: Kristin Green MD on 08/18/2023 10:12 AM [facility] Approved by: Kristin Green MD on 08/18/2023 10:12 AM [facility] Station ID: [id number]
[2023-08-18 10:42] LABS: COCAINE SCREEN URINE POSITIVE (NEGATIVE); THC CANNABINOID SCREEN, URINE POSITIVE (NEGATIVE)
[2023-08-18 10:43] LABS: AMPHETAMINE SCREEN,URINE POSITIVE (NEGATIVE); BARBITURATE SCREEN,UR NEGATIVE (NEGATIVE); BENZODIAZEPINES SCREEN, URINE NEGATIVE (NEGATIVE); BUPRENORPHINE SCREEN, URINE NEGATIVE (NEGATIVE); METHADONE SCREEN, URINE NEGATIVE (NEGATIVE); METHAMPHETAMINES SCREEN, URINE NEGATIVE (NEGATIVE); OPIATE SCREEN, URINE NEGATIVE (NEGATIVE); OXYCODONE SCREEN, URINE NEGATIVE (NEGATIVE); TRICYCLIC ANTIDEPRESSANT,URINE NEGATIVE (NEGATIVE)
[2023-08-18] MEDS ORDERED: ONDANSETRON 4 MG/2 ML VIAL IVP PRN (11:12)
[2023-08-18] MEDS ORDERED: ACETAMINOPHEN 325 MG TABLET PO PRN (11:12)
--- NOTE | 2023-08-18 11:20 | HISTORY & PHYSICAL EXAMINATION ---
Chief Complaint - Chief Complaint Chief Complaint: BIBA obtunded, awakening after getting repeat Narcan dosing History of Present Illness - Admitted From Admitted From:: ED - History Obtained From History obtained from: ED provider and the patient - History of Present Illness HPI Comment/Other: This is a 32-year-old -[place] male. He has a negative past medical hi story except takes Gabapentin for neuropathy he says. Patient was brought in obtunded by ambulance, but I am meeting him many hours after that, so he is starting to awaken and can answer questions then falls asleep. His mother at is at bedside and confirms parts of his history that she knows. 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 Some of that powder probably got into the coffee he said and after drinking it he quickly felt groggy. He was able to summon an ambulance and was initially able to speak to responders but became obtunded and desaturated to 50%. He was put on supplemental oxygen and was given Narcan en route. The Narcan awoke him temporarily. While being in the ER he has received 3 more IV Narcan pushes, and each iv push was successful in reviving him but only temporarily. When he is obtunded he remains hypoxic, and has been kept on supplemental O2. His workup also shows that he has bilateral infiltrates on chest x-ray. His electrolytes and CBC are within normal limits. His toxicology screen is positive for cocaine, meth and marijuana. The ED provider spoke to me about this patient, to bring him in and manage his ongoing respiratory depression. History - Past Medical History Cardiovascular: reports: None Respiratory: reports: None Neuro: reports: None Endocrine/Autoimmune: reports: None GI: reports: Other : reports: Kidney stones HEENT: reports: None Psych: reports: None Musculoskeletal: reports: None Derm: reports: None MRSA Hx?: No - Family & Social History Family History: Mother: Alive and Well Living arrangement: At home Living Situation: With family Social History Notes: He lives with his mother. He previously lived with a friend who abused fentanyl. - POLST Patient has POLST: No Meds/Allgy - Home Medications Home Medications: Ambulatory Orders Medication Instructions Recorded Confirmed Gabapentin 300 04/19/23 Ondansetron Odt [Zofran Odt] 4 mg TL Q6H PRN #10 tablet 04/19/23 Amox/Clav 875/125 [Augmentin 1 tab PO BID #10 tab 08/19/23 875/125 Tab] - Allergies Allergies/Adverse Reactions: Allergies Allergy/AdvReac Type Severity Reaction Status Date / Time No Known Drug Allergies Allergy Verified 06/23/23 12:03 Review of Systems - All Other Systems All Other Systems: reports: Other (The patient awakens briefly and answers questions then falls asleep. Overall questions about any symptoms in the ROS is negative) Exam - Vital Signs Vital Signs: Vital Signs x48h Temp Pulse Resp BP Pulse Ox O2 Flow Rate 08/18/23 10:45 61 11 L 126/99 H 98 2 08/18/23 09:52 62 12 94 2 08/18/23 09:50 36.6 C 75 12 121/72 75 L 0 08/18/23 09:03 60 10 L 122/80 97 2 08/18/23 07:40 60 16 119/78 99 2 08/18/23 06:49 56 L 16 108/62 85 L 08/18/23 04:45 35.5 C L 72 16 117/71 96 - Physical Exam General Appearance: positive: Lethargic (He has glassy eyes, is staring ahead when speaking and is fighting to stay awake but falls asleep easily, when not talking.) Eyes Bilateral: positive: Normal inspection, No lid inflammation ENT: positive: No signs of dehydration, Other (wearing O2 via n.c.) Neck: positive: Nml inspection, No JVD Respiratory: positive: No respiratory distress, Breath sounds nml Cardiovascular: positive: Regular rate & rhythm, No murmur Abdomen: positive: Non-tender, Nml bowel sounds, No distention Skin: positive: Warm, Dry Neurologic/Psychiatric: positive: Oriented x3, CN's nml (2-12), Other (Lethargic and falls asleep easily) Conclusion/Plan - Problem List (1) AMS (altered mental status) Conclusion/Plan: The patient presented obtunded but responds to Narcan push every time and becomes alert and oriented x 3 but briefly. Therefore the cause of his AMS is suspected to be a narcotic overdose, intentional or accidental Plan: Will place the patient in Observation status, in the ICU to monitor his respiratory status and repeat Narcan dosing when he is hypoxic and hypopneic (2) Opiate overdose Conclusion/Plan: This is the suspected cause of his obtundation and hypoxia. The patient denies using fentanyl. He does say that he knows how it smells because one of his friends uses it and the powder that was on the thermos liquid smelled like fentanyl Plan: As in #1 with repeat Narcan dosing if needed Will plan a social work consult regarding drug abuse when he is awake and alert and medically cleared, probably tomorrow (3) Hypoxia Conclusion/Plan: His hypoxia appears to be from hypopnea related to the suspected narcotic overdose. It could also be from findings of pneumonia on chest x-ray Plan: Give treatment for the hypopnea as in #1 Will start empiric antibiotics for the findings of pneumonia Continue giving supplemental O2 with target saturation 92% and above (4) CAP (community acquired pneumonia) Conclusion/Plan: Plan: Begin Augmentin p.o. twice daily, he will have to be awake when taking these p .o. tablets - Lab Results Fish Bones: 08/19/23 04:24 08/19/23 04:24 - Diagnostic Imaging Results Diagnostic Imaging Results: positive: Final report reviewed
[2023-08-18] MEDS ORDERED: NALOXONE 0.4 MG/ML VIAL IVP PRN (11:21)
[2023-08-18] MEDS: ENOXAPARIN 40 MG/0.4 ML SYRINGE SUBQ SCH (12:30)
[2023-08-18] MEDS: D5NS W/20 MEQ KCL 1,000 ML IV SCH (12:31)
[2023-08-18] MEDS: AMOX/CLAV 875 MG/125 MG TABLET PO SCH (12:31)
[2023-08-18] MEDS: SODIUM CHLORIDE FLUSH 0.9% 10 ML SYRINGE IVP SCH (12:31)
[2023-08-18] MEDS: NICOTINE 14 MG PATCH TOP SCH (19:32)
[2023-08-18] MEDS: FAMOTIDINE 20 MG/2 ML VIAL IVP SCH (20:51)
[2023-08-19 04:40] LABS: BASOPHILS % (AUTO) 0.3 %; EOSINOPHILS # (AUTO) 0.1 10^3/uL (0.0-0.7); EOSINOPHILS % (AUTO) 0.8 %; HCT - HEMATOCRIT 38.4 % (42.0-52.0); HGB - HEMOGLOBIN 12.4 g/dL (14.0-18.0); LYMPHOCYTES # (AUTO) 2.8 10^3/uL (1.5-3.5); LYMPHOCYTES % (AUTO) 38.5 %; MEAN CORPUSCULAR HEMOGLOBIN 31.9 pg (27.0-31.0); MEAN CORPUSCULAR HGB CONC 32.3 g/dL (32.0-36.0); MEAN CORPUSCULAR VOLUME 98.7 fL (80.0-94.0); MEAN PLATELET VOLUME 9.1 fL (7.4-11.4); MONOCYTES # (AUTO) 0.5 10^3/uL (0.0-1.0); MONOCYTES % (AUTO) 6.9 %; NEUTROPHILS # (AUTO) 3.9 10^3/uL (1.5-6.6); NEUTROPHILS % (AUTO) 53.4 %; PLT - PLATELET COUNT 234 10^3/uL (130-450); RED BLOOD COUNT 3.89 10^6/uL (4.70-6.10); RED CELL DISTRIBUTION WIDTH 14.3 % (12.0-15.0); WHITE BLOOD COUNT 7.3 x10^3/uL (4.8-10.8)
[2023-08-19 04:43] LABS: CALCIUM, IONIZED 1.13 mmol/L (1.15-1.33); VBG PH 7.405 (7.31-7.41)
[2023-08-19 04:46] LABS: MAGNESIUM 1.6 mg/dL (1.7-2.3)
[2023-08-19 04:52] LABS: CALCIUM 8.9 mg/dL (8.5-10.3); CREATININE 0.7 mg/dL (0.6-1.3); PHOSPHORUS 2.9 mg/dL (2.5-5.0)
--- NOTE | 2023-08-19 07:29 | Discharge Plan ---
Discharge Plan Problem Reviewed?: Yes Disposition: Home, Self Care Condition: Stable Diet: Regular Activity Restrictions: Activity as Tolerated Shower Restrictions: No Driving Restrictions: Yes (No driving if you are impaired) Instruction Topics: Amoxicillin Clavulanic Acid tablets, Cocaine Effects, Abuse Meth Abuse and Addiction Health Concerns: You were hospitalized in critical condition because you had respiratory depression causing severely low oxygen levels in your body. This was caused by ingestion of what ever compound or powder you took in. Your tox screen showed that you had cocaine and meth in your system, as well as marijuana. You yourself suspected there was fentanyl in the powder. You have been seen by our Convention Services Manager and given resources to stop using illegal drugs. We also witnessed that you snore, therefore you may have sleep apnea. It is recommended that you have a sleep study done as an outpatient, to see if you have sleep apnea and if need a CPAP device during sleeping, to keep your airway open and prevent oxygen levels to drop. We also found that you have a pneumonia in both sides of her lung. You have been started on antibiotics. A prescription to complete a course of antibiotics was sent to your [facility] pharmacy in [place]. Plan of Treatment: As above. Stop using illegal drugs. Stop smoking. Finish the course of antibiotics. Care Goals: Improvement in symptoms and stabilization are the goals. Assessment: The patient understands the plan and advice. No Smoking: If you smoke, Please STOP! Call for help.
[2023-08-19] MEDS: MAGNESIUM OXIDE 400 MG TABLET PO ONE (08:19)
[2023-08-19] MEDS: SODIUM CHLORIDE FLUSH 0.9% 10 ML SYRINGE IVP PRN (08:21)
--- NOTE | 2023-08-19 09:11 | PHARMACY PROGRESS NOTE ---
- Best Possible Medication History Admit Date and Time: 08/18/23 1112 Processed by: Pharmacy Medication History completed: Yes Patient Interview: Completed Secondary Source(s): Pharmacy records As the person ultimately responsible for medication therapy, providers are able to order a medication from an existing home medication list in [facility] via the "Reconcile Routine" prior to Confirmation of that medication by aircraft life support fitter. Such practice is discouraged except when the physician, in their clinical judgment, deems that a medical need exists for a medication without regard to previous use.
--- NOTE | 2023-08-19 09:58 | XRAY Report ---
PROCEDURE: Chest 1V INDICATIONS: F/U PNA TECHNIQUE: One view of the chest was acquired. COMPARISON: Chest radiograph on August 18, 2023. FINDINGS: Surgical changes and devices: None. Lungs and pleura: No pleural effusions or pneumothorax. Bibasilar patchy consolidation has decreased . Mediastinum: Mediastinal contours appear normal. Heart size is normal. Bones and chest wall: No suspicious bony lesions. Overlying soft tissues appear unremarkable. IMPRESSION: Bibasilar patchy consolidation has decreased suggestive of improving atelectasis, aspiration and/or p neumonia. Reviewed by: Robinson Walker MD on 08/19/2023 9:57 AM PST Approved by: Robinson Walker MD on 08/19/2023 9:57 AM PST Station ID: [id number]
[2023-08-19 10:06] VITALS: BP 137/100; O2SAT 100
--- NOTE | 2023-08-19 10:43 | DISCHARGE SUMMARY ---
Discharge Summary Admit Date: 08/18/23 Discharge Date: 08/19/23 Discharging Provider: Dr Leslie Lebron Primary Care Provider: -None- Condition at Discharge: Stable Discharge Disposition: 01 Home, Self Care - HPI History of Present Illness: This is a 32-year-old -[place] male. He has a negative past medical history except takes Gabapentin for neuropathy he says. Patient was brought in obtunded by ambulance, but I am meeting him many hours after that, so he is starting to awaken and can answer questions then falls asleep. His mother at is at bedside and confirms parts of his history that she knows. 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 Some of that powder probably got into the coffee he said and after drinking it he quickly felt groggy. He was able to summon an ambulance and was initially able to speak to responders but became obtunded and desaturated to 50%. He was put on supplemental oxygen and was given Narcan en route. The Narcan awoke him temporarily. While being in the ER he has received 3 more IV Narcan pushes, and each iv push was successful in reviving him but only temporarily. When he is obtunded he remains hypoxic, and has been kept on supplemental O2. His workup also shows that he has bilateral infiltrates on chest x-ray. His electrolytes and CBC are within normal limits. His toxicology screen is positive for cocaine, meth and marijuana. The ED provider spoke to me about this patient, to bring him in and manage his ongoing respiratory depression. - HOSPITAL COURSE Hospital Course: (1) AMS (altered mental status) The patient presented obtunded but responded to Narcan pushes and became alert and oriented briefly. Therefore the cause of his AMS was suspected to be a narcotic overdose, intentional or accidental. He was placed in the ICU to monitor his respiratory status and manage hypoxia and hypopnia. He awoke fully by the next day and was discharged. (2) Opiate overdose This was the suspected cause of his obtundation and hypoxia. The patient denied using fentanyl but said that he "does knows how it smells because one of his friends uses it and the powder that was on the thermos liquid smelled like fentanyl". Social Work saw him and he denied drug abuse (3) Hypoxia His hypoxia appeared to be from hypopnea related to the suspected narcotic overdose, plus he had a pneumonia on chest x-ray, which we startd to treat. He was able to be weaned down from suppl O2 to room air, as he awoke fully. (4) CAP (community acquired pneumonia) We started him on Augmentin p.o. twice daily and he was discharged to complete a course of this. - ALLERGIES Allergies/Adverse Reactions: Allergies Allergy/AdvReac Type Severity Reaction Status Date / Time No Known Drug Allergies Allergy Verified 06/23/23 12:03 - MEDICATIONS Home Medications: Ambulatory Orders Medication Instructions Recorded Confirmed No Known Home Medications 08/19/23 08/19/23 - PHYSICAL EXAM AT DISCHARGE General Appearance: positive: No acute distress, Alert Eyes Bilateral: positive: Normal inspection, EOMI ENT: positive: ENT inspection nml, No signs of dehydration Neck: positive: Nml inspection, No JVD Respiratory: positive: No respiratory distress, Rhonchi Cardiovascular: positive: Regular rate & rhythm, No murmur Abdomen: positive: Non-tender, Nml bowel sounds, No distention Skin: positive: Warm, Dry Extremities: positive: Non-tender, No pedal edema Neurologic/Psychiatric: positive: Oriented x3, CN's nml (2-12), Motor nml - LABS Result Diagrams: 08/19/23 04:24 08/19/23 04:24 - DIAGNOSTIC IMAGING Diagnostic Imaging Results: Final report reviewed - TIME SPENT Time Spent in Discharge (Minutes): 30
== END 2023-08-19 10:20 | disposition home or self-care (01) ==
LOC: EDUNIT# → ED 04:32 → UNDOADMOB 11:12 → ICU 11:12
PROVIDERS: ADMIT Internal Medicine; ATTEND Internal Medicine
DX: T40.601A Poisoning by unspecified narcotics, accidental (unintentional), initial encounter (principal); Y92.512 Supermarket, store or market as the place of occurrence of the external cause; R41.82 Altered mental status, unspecified; R09.02 Hypoxemia; J18.9 Pneumonia, unspecified organism; G62.9 Polyneuropathy, unspecified; F19.10 Other psychoactive substance abuse, uncomplicated
CPT/HCPCS: 36415; 36680; 71045; 80048; 80053; 80306; 80307; 80320; 80329; 82330; 83690; 83735; 84100; 85025; 87150; 96361; 96372; 96374; 96375; 96376; 99284; 99285; A9270; G0378; J1650

== ENCOUNTER 2023-08-30 10:42 | Emergency (ER) | payer MEDICAID ==
--- NOTE | 2023-08-30 12:26 | XRAY Report ---
PROCEDURE: Chest 2V INDICATIONS: chest pain TECHNIQUE: 2 views of the chest were acquired. COMPARISON: Chest radiograph 08/19/2023. FINDINGS: Surgical changes and devices: None. Lungs and pleura: No pleural effusions or pneumothorax. Lungs are clear. Mediastinum: Mediastinal contours appear normal. Heart size is normal. Bones and chest wall: No suspicious bony lesions. Overlying soft tissues appear unremarkable. IMPRESSION: No acute cardiopulmonary process. Reviewed by: Meredith Stevens MD on 08/30/2023 12:25 PM PST Approved by: Meredith Stevens MD on 08/30/2023 12:25 PM PST Station ID: [id number]
--- NOTE | 2023-08-30 13:06 | ED Physician Documentation ---
PD HPI CHEST PAIN - Stated complaint Stated Complaint: CHEST PX,DISCOMFORT - Chief complaint Chief Complaint: Cardiac - History obtained from History obtained from: Patient - Additional information Additional information: 32-year-old gentleman who does use tobacco. He was admitted here approximately 12 days ago after a fentanyl overdose. Did not need CPR but did have respiratory depression and developed a pneumonia and has been ongoing Augmentin. Last night developed substernal chest pain radiating to the back which is worse when supine and better upright. It is not worse with deep breathing and he is not short of breath. Denies pedal edema or calf pain. PD PAST MEDICAL HISTORY - Past Medical History Cardiovascular: None Respiratory: None Neuro: None Endocrine/Autoimmune: None GI: Other : Kidney stones HEENT: None Psych: None Musculoskeletal: None Derm: None - Past Surgical History Past Surgical History: Yes - Present Medications Home Medications: Ambulatory Orders Medication Instructions Recorded Confirmed Doxycycline [Vibramycin] 100 mg PO ONCE 08/30/23 08/30/23 Ibuprofen [Motrin] 600 mg PO Q6H PRN #30 tab 08/30/23 - Allergies Allergies/Adverse Reactions: Allergies Allergy/AdvReac Type Severity Reaction Status Date / Time No Known Drug Allergies Allergy Verified 08/30/23 10:55 - Social History Does the pt smoke?: Yes Smoking Status: Current every day smoker Does the pt drink ETOH?: No Does the pt have substance abuse?: Yes - Immunizations Immunizations are current?: Yes - POLST Patient has POLST: No PD ED PE NORMAL - Vitals Vital signs reviewed: Yes - General General: Alert and oriented X 3, No acute distress - HEENT HEENT: PERRL, EOMI - Neck Neck: Supple, no meningeal sign, No bony TTP - Cardiac Cardiac: RRR, No murmur, Other (Chest pain is reproducible with palpation of the anterior sternum.) - Respiratory Respiratory: No respiratory distress, Clear bilaterally - Abdomen Abdomen: Non tender - Derm Derm: Normal color, Warm and dry - Extremities Extremities: No edema, No calf tenderness / cord - Neuro Neuro: Alert and oriented X 3, Normal speech Eye Opening: Spontaneous Motor: Obeys Commands Verbal: Oriented GCS Score: 15 Results - Vitals Vitals: Vital Signs - 24 hr 08/30/23 08/30/23 10:52 12:55 Temperature 37.1 C Heart Rate 74 72 Respiratory 16 16 Rate Blood Pressure 125/84 H 125/85 H O2 Saturation 100 100 Oxygen O2 Source Room air - EKG (time done) 1054am EKG releavant findings:: EKG personally interpreted by author of this note. Relevant findings are: Rate: Rate (enter#) (80) Rhythm: NSR [place]: Normal Intervals: Normal DC QRS: Normal Ischemia: ST elevation c/w repol. No: ST elevation c/w ischemia, ST depression, T wave inversion - Labs Labs: Laboratory Tests 08/30/23 08/30/23 13:04 13:04 WBC 7.0 RBC 4.43 L Hgb 13.9 L Hct 42.0 MCV 94.8 H MCH 31.4 H MCHC 33.1 RDW 13.7 Plt Count 260 MPV 9.0 Neut # (Auto) 2.8 Lymph # (Auto) 3.2 [place] # (Auto) 0.5 Eos # (Auto) 0.3 Baso # (Auto) 0.0 Absolute Nucleated RBC 0.00 Nucleated RBC % 0.0 Sodium 138 Potassium 3.8 Chloride 105 Carbon Dioxide 28 Anion Gap 5.0 L BUN 10 Creatinine 0.8 Estimated GFR (MDRD) 135 Glucose 77 Calcium 10.0 Total Bilirubin 1.2 H AST 17 ALT 19 Alkaline Phosphatase 78 Troponin I High Sens 2.3 Total Protein 7.6 Albumin 4.1 Globulin 3.5 Albumin/Globulin Ratio 1.2 - Rads (name of study) 2 view chest x-ray is unremarkable with resolution of prior pneumonia. Relevant Findings:: Final report received, EMP independent interpretation of test PD Medical Decision Making - ED course ED course: Dissection considered, but no wide mediastinum on x-ray, no significant hypertension, and equal radial pulses. Nothing in the history or physical to suggest PE and he has normal vital signs and no shortness of breath. 32-year-old gentleman presents with reproducible chest pain. He was recently treated for pneumonia but this seems to have resolved on x-ray. His CBC is unremarkable. CMP unremarkable. Troponin normal/negative. Heart score 1 for smoking. Departure - Departure Disposition: 01 Home, Self Care Clinical Impression: Costochondritis, acute Condition: Stable Record reviewed to determine appropriate education?: Yes Instructions: ED Chest Pain Costochondritis Prescriptions: Ibuprofen [Motrin] 600 mg PO Q6H PRN #30 tab PRN Reason: Pain Comments: Your pain today is consistent with something called costochondritis, it is a benign cause of chest pain due to inflammation of the area around the sternum. For that you can take ibuprofen per package instructions available over-the- counter's. Return for new or worsening symptoms. Follow-up with your doctor within the week for repeat check. Forms: PCP List
[2023-08-30 13:16] LABS: BASOPHILS % (AUTO) 0.4 %; EOSINOPHILS # (AUTO) 0.3 10^3/uL (0.0-0.7); EOSINOPHILS % (AUTO) 4.9 %; HGB - HEMOGLOBIN 13.9 g/dL (14.0-18.0); LYMPHOCYTES # (AUTO) 3.2 10^3/uL (1.5-3.5); LYMPHOCYTES % (AUTO) 46.1 %; MEAN CORPUSCULAR HEMOGLOBIN 31.4 pg (27.0-31.0); MEAN CORPUSCULAR HGB CONC 33.1 g/dL (32.0-36.0); MEAN CORPUSCULAR VOLUME 94.8 fL (80.0-94.0); MONOCYTES # (AUTO) 0.5 10^3/uL (0.0-1.0); MONOCYTES % (AUTO) 7.8 %; NEUTROPHILS # (AUTO) 2.8 10^3/uL (1.5-6.6); NEUTROPHILS % (AUTO) 40.7 %; PLT - PLATELET COUNT 260 10^3/uL (130-450); RED BLOOD COUNT 4.43 10^6/uL (4.70-6.10); RED CELL DISTRIBUTION WIDTH 13.7 % (12.0-15.0)
[2023-08-30 13:34] LABS: ALBUMIN 4.1 g/dL (3.2-5.5); ALBUMIN/GLOBULIN RATIO 1.2 (1.0-2.2); BILIRUBIN,TOTAL 1.2 mg/dL (0.2-1.0); CREATININE 0.8 mg/dL (0.6-1.3); POTASSIUM 3.8 mmol/L (3.5-4.5); TOTAL PROTEIN 7.6 g/dL (6.4-8.9)
[2023-08-30 13:40] LABS: TROPONIN I HIGH SENSITIVITY 2.3 ng/L (2.3-19.7)
[2023-08-30] MEDS: IBUPROFEN 800 MG TABLET PO STA (13:52)
[2023-08-30 14:06] VITALS: BP 115/83; O2SAT 98
== END 2023-08-30 13:57 | disposition home or self-care (01) ==
LOC: ED 10:42
DX: M94.0 Chondrocostal junction syndrome [Tietze] (principal); F17.200 Nicotine dependence, unspecified, uncomplicated; Z79.899 Other long term (current) drug therapy
CPT/HCPCS: 36415; 71046; 80053; 84484; 85025; 93005; 99284; A9270